=== PATIENT | female | born 1985 | race American Indian/Alaskan Native ===

== ENCOUNTER 2017-01-25 23:42 | Emergency (ER) | payer OTHER ==
[2017-01-26 00:54] VITALS: BP 109/65
--- NOTE | 2017-01-26 01:20 | Emergency Department Report ---
ED ENT HPI - General Chief complaint: Dental/Oral Stated complaint: TOOTHACHE Source: patient Mode of arrival: Ambulatory Limitations: No Limitations - History of Present Illness MD complaint: tooth pain -: Gradual Location: tooth # Quality: aching Worsens with: eating Context- Dental: history of dental caries, poor dental care - Related Data Previous Rx's Medication Instructions Recorded Last Taken Type Famotidine [Pepcid] 40 mg PO DAILY #14 tablet 01/21/14 Unknown Rx Naproxen Sodium (Nf) [Anaprox DS 550 mg PO BID PRN #14 tablet 01/21/14 Unknown Rx TAB] predniSONE [Deltasone] 50 mg PO QDAY #5 tab 01/21/14 Unknown Rx Gentamicin 0.3% Ophth Soln 1 drops OP Q4H #1 bottle 02/23/15 Unknown Rx Ibuprofen [Motrin] 600 mg PO Q8H PRN #30 tablet 03/06/15 Unknown Rx Sulfamethoxazole/Trimethoprim 1 each PO BID #14 tablet 03/06/15 Unknown Rx [Bactrim DS TAB] traMADol [Ultram] 50 mg PO Q6HR PRN #14 tablet 03/06/15 Unknown Rx HYDROcodone/APAP 5-325 [[place] 1 each PO Q6HR PRN #15 tablet 03/07/15 Unknown Rx 5/325] Ondansetron [Zofran TAB] 4 mg PO Q8HR PRN #12 tablet 03/07/15 Unknown Rx Amoxicillin [Amoxicillin TAB] 875 mg PO BID #20 tablet 01/26/17 Unknown Rx HYDROcodone/APAP 5-325 [[place] 1 each PO Q4HR PRN #6 tablet 01/26/17 Unknown Rx 5/325] Allergies Allergy/AdvReac Type Severity Reaction Status Date / Time No Known Allergies Allergy Verified 01/21/14 05:07 ED Dental HPI - General Chief complaint: Dental/Oral Stated complaint: TOOTHACHE Source: patient Mode of arrival: Ambulatory Limitations: No Limitations - History of Present Illness MD complaint: tooth pain Quality: aching Worsens with: eating, hot/cold liquids Context- Dental: poor dental care - Related Data Previous Rx's Medication Instructions Recorded Last Taken Type Famotidine [Pepcid] 40 mg PO DAILY #14 tablet 01/21/14 Unknown Rx Naproxen Sodium (Nf) [Anaprox DS 550 mg PO BID PRN #14 tablet 01/21/14 Unknown Rx TAB] predniSONE [Deltasone] 50 mg PO QDAY #5 tab 01/21/14 Unknown Rx Gentamicin 0.3% Ophth Soln 1 drops OP Q4H #1 bottle 02/23/15 Unknown Rx Ibuprofen [Motrin] 600 mg PO Q8H PRN #30 tablet 03/06/15 Unknown Rx Sulfamethoxazole/Trimethoprim 1 each PO BID #14 tablet 03/06/15 Unknown Rx [Bactrim DS TAB] traMADol [Ultram] 50 mg PO Q6HR PRN #14 tablet 03/06/15 Unknown Rx HYDROcodone/APAP 5-325 [[place] 1 each PO Q6HR PRN #15 tablet 03/07/15 Unknown Rx 5/325] Ondansetron [Zofran TAB] 4 mg PO Q8HR PRN #12 tablet 03/07/15 Unknown Rx Amoxicillin [Amoxicillin TAB] 875 mg PO BID #20 tablet 01/26/17 Unknown Rx HYDROcodone/APAP 5-325 [[place] 1 each PO Q4HR PRN #6 tablet 01/26/17 Unknown Rx 5/325] Allergies Allergy/AdvReac Type Severity Reaction Status Date / Time No Known Allergies Allergy Verified 01/21/14 05:07 ED Review of Systems ROS: Stated complaint: TOOTHACHE Other details as noted in HPI Constitutional: denies: chills, fever Eyes: denies: eye pain, eye discharge, vision change ENT: dental pain Respiratory: denies: cough, shortness of breath, wheezing Cardiovascular: denies: chest pain Gastrointestinal: denies: nausea, vomiting Skin: denies: rash, lesions Neurological: headache. denies: weakness, numbness, paresthesias, abnormal gait ED Past Medical Hx - Past Medical History Previous Medical History?: No - Surgical History Past Surgical History?: Yes Hx Breast Surgery: Yes (2017) Additional Surgical History: KNEE AND ANKLE SURGERY -2010 - Social History Smoking Status: Never Smoker Substance Use Type: None - Medications Home Medications: Home Medications Medication Instructions Recorded Confirmed Last Taken Type Famotidine [Pepcid] 40 mg PO DAILY #14 tablet 01/21/14 Unknown Rx Naproxen Sodium (Nf) [Anaprox DS 550 mg PO BID PRN #14 tablet 01/21/14 Unknown Rx TAB] predniSONE [Deltasone] 50 mg PO QDAY #5 tab 01/21/14 Unknown Rx Gentamicin 0.3% Ophth Soln 1 drops OP Q4H #1 bottle 02/23/15 Unknown Rx Ibuprofen [Motrin] 600 mg PO Q8H PRN #30 tablet 03/06/15 Unknown Rx Sulfamethoxazole/Trimethoprim 1 each PO BID #14 tablet 03/06/15 Unknown Rx [Bactrim DS TAB] traMADol [Ultram] 50 mg PO Q6HR PRN #14 tablet 03/06/15 Unknown Rx HYDROcodone/APAP 5-325 [[place] 1 each PO Q6HR PRN #15 tablet 03/07/15 Unknown Rx 5/325] Ondansetron [Zofran TAB] 4 mg PO Q8HR PRN #12 tablet 03/07/15 Unknown Rx Amoxicillin [Amoxicillin TAB] 875 mg PO BID #20 tablet 01/26/17 Unknown Rx HYDROcodone/APAP 5-325 [[place] 1 each PO Q4HR PRN #6 tablet 01/26/17 Unknown Rx 5/325] ED Physical Exam - General Limitations: No Limitations General appearance: alert, in no apparent distress - Head Head exam: Present: atraumatic, normocephalic - Eye Eye exam: Present: normal appearance, PERRL, EOMI - ENT ENT exam: Present: mucous membranes moist, TM's normal bilaterally, normal external ear exam, other - Expanded ENT Exam Expanded Teeth exam: Present: dental caries 1 - Dental Tenderness, Other 2 - Dental Tenderness, Other - Neck Neck exam: Present: normal inspection, full ROM. Absent: tenderness, meningismus, lymphadenopathy - Respiratory Respiratory exam: Absent: respiratory distress - Cardiovascular Cardiovascular Exam: Present: regular rate - Back Exam Back exam: Present: normal inspection. Absent: CVA tenderness (R), CVA tenderness (L) - Neurological Exam Neurological exam: Present: alert, oriented X3, CN II-XII intact - Skin Skin exam: Present: warm, dry, intact, normal color. Absent: rash ED Course Vital Signs 01/26/17 00:50 Temperature 98.5 F Pulse Rate 72 Respiratory 16 Rate Blood Pressure 109/65 O2 Sat by Pulse 97 Oximetry Critical care attestation.: If time is entered above; I have spent that time in minutes in the direct care of this critically ill patient, excluding procedure time. ED Disposition Clinical Impression: Dental caries Disposition: TO HOME OR SELFCARE Is pt being admited?: No Condition: Stable Instructions: Dental Caries (ED) Prescriptions: Amoxicillin [Amoxicillin TAB] 875 mg PO BID #20 tablet HYDROcodone/APAP 5-325 [[place] 5/325] 1 each PO Q4HR PRN #6 tablet PRN Reason: Pain Referrals: PRIMARY CARE,MD [Primary Care Provider] - 3-5 Days
== END 2017-01-26 01:29 | disposition home or self-care (01) ==
LOC: ED 23:42
DX: K02.9 Dental caries, unspecified (principal)
CPT/HCPCS: 99282

== ENCOUNTER 2017-07-30 08:54 | Emergency (ER) | payer SELFPAY ==
[2017-07-30 09:03] VITALS: BP 136/69
[2017-07-30] MEDS ORDERED: ZOFRAN ODT PO ONE (14:13)
--- NOTE | 2017-07-30 14:13 | Emergency Department Report ---
- General Chief Complaint: Upper Respiratory Infection Stated Complaint: FLU LIKE SYMPTOMS Time Seen by Provider: 07/30/17 13:17 Source: patient Mode of arrival: Ambulatory Limitations: No Limitations - History of Present Illness Initial Comments: 31-year-old female past medical history none presents with complaint of one week of persistent cough and sore throat body aches and generalized malaise. Patient is not a smoker. Multiple sick contacts at home and work. Patient is awake alert and oriented 3 not in acute distress fully lucid and cooperative and able to provide a detailed history. Patient denies abdominal pain chest pain or palpitations or dyspnea. Patient does endorse some persistent cough. Has not taken any medicines for her symptoms at home. MD Complaint: fever, cough, sore throat, rhinorrhea, nasal congestion Onset/Timin -: week(s) Consistency: intermittent Improves With: nothing Context: sick contacts Associated Symptoms: fever, chills, myalgias, cough Treatments Prior to Arrival: none - Related Data Previous Rx's Medication Instructions Recorded Last Taken Type Famotidine [Pepcid] 40 mg PO DAILY #14 tablet 01/21/14 Unknown Rx Naproxen Sodium (Nf) [Anaprox DS 550 mg PO BID PRN #14 tablet 01/21/14 Unknown Rx TAB] predniSONE [Deltasone] 50 mg PO QDAY #5 tab 01/21/14 Unknown Rx Gentamicin 0.3% Ophth Soln 1 drops OP Q4H #1 bottle 02/23/15 Unknown Rx Ibuprofen [Motrin] 600 mg PO Q8H PRN #30 tablet 03/06/15 Unknown Rx Sulfamethoxazole/Trimethoprim 1 each PO BID #14 tablet 03/06/15 Unknown Rx [Bactrim DS TAB] traMADol [Ultram] 50 mg PO Q6HR PRN #14 tablet 03/06/15 Unknown Rx HYDROcodone/APAP 5-325 [[employer] 1 each PO Q6HR PRN #15 tablet 03/07/15 Unknown Rx 5/325] Ondansetron [Zofran TAB] 4 mg PO Q8HR PRN #12 tablet 03/07/15 Unknown Rx Amoxicillin [Amoxicillin TAB] 875 mg PO BID #20 tablet 01/26/17 Unknown Rx HYDROcodone/APAP 5-325 [[employer] 1 each PO Q4HR PRN #6 tablet 01/26/17 Unknown Rx 5/325] ALBUTEROL Inhaler [ProAir HFA 1 puff IH Q4H PRN #1 inha 07/30/17 Unknown Rx Inhaler] Ibuprofen [Motrin] 800 mg PO Q8HR PRN #30 tablet 07/30/17 Unknown Rx Nitrofurantoin Monohyd/M-Cryst 100 mg PO BID #14 capsule 07/30/17 Unknown Rx [Macrobid 100 mg Capsule] Ondansetron [Zofran Odt] 4 mg PO Q8H PRN #12 tab.rapdis 07/30/17 Unknown Rx Phenylephrine/Dm/Acetaminop/GG 10 ml PO Q8H PRN #1 liquid 07/30/17 Unknown Rx [Mucinex Ylod-Vni-Gfjvwkvnqs Lq] Allergies Allergy/AdvReac Type Severity Reaction Status Date / Time tramadol Allergy Itching Verified 07/30/17 08:59 ED Review of Systems ROS: Stated complaint: FLU LIKE SYMPTOMS Other details as noted in HPI Constitutional: chills, fever, malaise Eyes: denies: eye pain, eye discharge, vision change ENT: denies: ear pain, throat pain Respiratory: cough. denies: shortness of breath, wheezing Cardiovascular: denies: chest pain, palpitations Endocrine: no symptoms reported Gastrointestinal: denies: abdominal pain, nausea, diarrhea Genitourinary: denies: urgency, dysuria, discharge Musculoskeletal: denies: back pain, joint swelling, arthralgia Skin: denies: rash, lesions Neurological: denies: headache, weakness, paresthesias Psychiatric: denies: anxiety, depression Hematological/Lymphatic: denies: easy bleeding, easy bruising ED Past Medical Hx - Past Medical History Previous Medical History?: No - Surgical History Past Surgical History?: Yes Hx Breast Surgery: Yes (2017) Additional Surgical History: KNEE AND ANKLE SURGERY -2009 - Social History Smoking Status: Never Smoker Substance Use Type: None - Medications Home Medications: Home Medications Medication Instructions Recorded Confirmed Last Taken Type Famotidine [Pepcid] 40 mg PO DAILY #14 tablet 01/21/14 Unknown Rx Naproxen Sodium (Nf) [Anaprox DS 550 mg PO BID PRN #14 tablet 01/21/14 Unknown Rx TAB] predniSONE [Deltasone] 50 mg PO QDAY #5 tab 01/21/14 Unknown Rx Gentamicin 0.3% Ophth Soln 1 drops OP Q4H #1 bottle 02/23/15 Unknown Rx Ibuprofen [Motrin] 600 mg PO Q8H PRN #30 tablet 03/06/15 Unknown Rx Sulfamethoxazole/Trimethoprim 1 each PO BID #14 tablet 03/06/15 Unknown Rx [Bactrim DS TAB] traMADol [Ultram] 50 mg PO Q6HR PRN #14 tablet 03/06/15 Unknown Rx HYDROcodone/APAP 5-325 [[employer] 1 each PO Q6HR PRN #15 tablet 03/07/15 Unknown Rx 5/325] Ondansetron [Zofran TAB] 4 mg PO Q8HR PRN #12 tablet 03/07/15 Unknown Rx Amoxicillin [Amoxicillin TAB] 875 mg PO BID #20 tablet 01/26/17 Unknown Rx HYDROcodone/APAP 5-325 [[employer] 1 each PO Q4HR PRN #6 tablet 01/26/17 Unknown Rx 5/325] ALBUTEROL Inhaler [ProAir HFA 1 puff IH Q4H PRN #1 inha 07/30/17 Unknown Rx Inhaler] Ibuprofen [Motrin] 800 mg PO Q8HR PRN #30 tablet 07/30/17 Unknown Rx Nitrofurantoin Monohyd/M-Cryst 100 mg PO BID #14 capsule 07/30/17 Unknown Rx [Macrobid 100 mg Capsule] Ondansetron [Zofran Odt] 4 mg PO Q8H PRN #12 tab.rapdis 07/30/17 Unknown Rx Phenylephrine/Dm/Acetaminop/GG 10 ml PO Q8H PRN #1 liquid 07/30/17 Unknown Rx [Mucinex Nrdc-Bkv-Yireroxoes Lq] ED Physical Exam - General Limitations: No Limitations General appearance: alert, in no apparent distress - Head Head exam: Present: atraumatic, normocephalic - Eye Eye exam: Present: normal appearance, PERRL, EOMI - ENT ENT exam: Present: mucous membranes moist - Neck Neck exam: Present: normal inspection - Respiratory Respiratory exam: Present: normal lung sounds bilaterally. Absent: respiratory distress - Cardiovascular Cardiovascular Exam: Present: regular rate, normal rhythm. Absent: systolic murmur, diastolic murmur, rubs, gallop - GI/Abdominal GI/Abdominal exam: Present: soft, normal bowel sounds - Extremities Exam Extremities exam: Present: normal inspection - Back Exam Back exam: Present: normal inspection - Neurological Exam Neurological exam: Present: alert, oriented X3, CN II-XII intact, normal gait - Psychiatric Psychiatric exam: Present: normal affect, normal mood - Skin Skin exam: Present: warm, dry, intact, normal color. Absent: rash ED Course Vital Signs 07/30/17 08:59 Temperature 98.3 F Pulse Rate 91 H Respiratory 18 Rate Blood Pressure 136/69 O2 Sat by Pulse 98 Oximetry ED Medical Decision Making - Medical Decision Making A/P: Flulike illness, asymptomatic bacteuria 1-x-ray unremarkable, patient has had symptoms for more than one week. I discussed patient the pros and cons of using Tamiflu and the CBC is current recommendations on Tamiflu and influenza. Patient elects at this time to not take Tamiflu after discussion of benefits and side effects. 2-Mucinex, Zofran when necessary, Tessalon Perles when necessary, albuterol inhaler when necessary 3-patient incidentally has large leukocytes on urinalysis will treat empirically with Macrobid 4- all up with primary care doctor. I advised the patient to return to the ED she experiences any worsening fevers chills nausea vomiting. Critical care attestation.: If time is entered above; I have spent that time in minutes in the direct care of this critically ill patient, excluding procedure time. ED Disposition Clinical Impression: Asymptomatic bacteriuria, Viral syndrome, Flu-like symptoms Disposition: - TO HOME OR SELFCARE Is pt being admited?: No Does the pt Need Aspirin: No Condition: Stable Instructions: Influenza (ED), Urinary Tract Infection in Women (ED), Viral Syndrome (ED) Prescriptions: ALBUTEROL Inhaler [ProAir HFA Inhaler] 1 puff IH Q4H PRN #1 inha PRN Reason: Wheezing Ibuprofen [Motrin] 800 mg PO Q8HR PRN #30 tablet PRN Reason: Fever Nitrofurantoin Monohyd/M-Cryst [Macrobid 100 mg Capsule] 100 mg PO BID #14 capsule Ondansetron [Zofran Odt] 4 mg PO Q8H PRN #12 tab.rapdis PRN Reason: Nausea Phenylephrine/Dm/Acetaminop/GG [Mucinex Uzzz-Jch-Ygsledeiiw Lq] 10 ml PO Q8H PRN #1 liquid PRN Reason: Cough Referrals: [facility] [Outside] - 3-5 Days [facility] [Outside] - 3-5 Days Forms: Work/School Release Form(ED) Time of Disposition: 15:57
[2017-07-30] MEDS ORDERED: DUONEB *Not for PRN Use IH ONE (14:14)
[2017-07-30] MEDS ORDERED: GUAIFENESIN DM SYRUP PO ONE (14:14)
[2017-07-30] MEDS ORDERED: TESSALON PERLES PO ONE (14:14)
[2017-07-30 15:30] LABS: HCG Qualitative,Urine Negative (Negative)
[2017-07-30 15:31] LABS: Bacteria,Urine 1+ /HPF (Negative); Bilirubin,Urine NEG (Negative); Blood,Urine NEG (Negative); Color,Urine Yellow (Yellow); Mucus,Urine 3+ /HPF; Nitrite,Urine NEG (Negative); Protein,Urine <15 mg/dL mg/dL (Negative); Urobilinogen,Urine < 2.0 mg/dL (<2.0)
--- NOTE | 2017-07-30 15:54 | XRay Report ---
ROUTINE CHEST, TWO VIEWS: HISTORY: Cough. The trachea, heart, mediastinal contour, lung [place] and bony thorax are unremarkable. IMPRESSION: Unremarkable chest x-ray.
== END 2017-07-30 16:07 | disposition home or self-care (01) ==
LOC: ED 08:54
DX: B34.9 Viral infection, unspecified (principal); R82.71 Bacteriuria; M79.1 Myalgia; R05 Cough; R53.83 Other fatigue; R09.81 Nasal congestion; Z88.6 Allergy status to analgesic agent
CPT/HCPCS: 71046; 81001; 81025; 94640; Q0162